=== PATIENT | female | born 1985 | race African-American/Black ===

== ENCOUNTER 2017-08-16 05:59 | Emergency (ER) | payer MEDICAID ==
[~2017-08-16] VITALS: Ht 162.6 cm; Wt 77.4 kg
[2017-08-16 10:07] VITALS: BP 116/69
== END 2017-08-16 11:02 | disposition home or self-care (01) ==
LOC: ER 05:59
DX: B34.9 Viral infection, unspecified (principal); F17.210 Nicotine dependence, cigarettes, uncomplicated
CPT/HCPCS: 71045; 99283